=== PATIENT | male | born 1945 | race Caucasian/White ===

== ENCOUNTER 2021-03-06 06:26 | Day surgery (SDC) | payer MEDICARE ==
[2021-03-04 13:50] VITALS: BMI 28.8
[2021-03-06 06:54] VITALS: RESP 18; TEMP 97.9
[2021-03-06 06:57] LABS: Glucose,Whole Blood 111 mg/dL (75-99)
[2021-03-06] MEDS: LACTATED RINGERS 1,000 ML IV SCH ×2 (06:59→07:28)
[2021-03-06] MEDS ORDERED: PROPOFOL 10 MG/ML 20 ML VIAL IV ONE (07:29)
[2021-03-06] MEDS ORDERED: LIDOCAINE 1% INJ 10MG/ML (20 ML MDV) ONE (07:29)
[2021-03-06 08:19] VITALS: BP 120/75; PULSE 77
--- NOTE | 2021-03-06 08:22 | P.PCN ---
Date of Procedure: 03/06/21 Procedure(s) Performed: Brief history: Patient is a pleasant 76-year-old pleasant white female scheduled for an elective upper endoscopy as well as colonoscopy as a part of evaluation of long- standing history of GERD and prior history of colon polyps. Procedure performed: Esophagogastroduodenoscopy with biopsy Colonoscopy with snare polypectomy Preoperative diagnosis: GERD History of colon polyps Anesthesia: MAC Procedure: After informed consent was obtained from the patient was brought into the en doscopy unit and IV sedation was administered by anesthesia under continuous monitoring. Initially upper endoscopy was done. The Olympus GF 160 video endoscope was inserted inserted into the mouth and esophagus intubated without any difficulty and was gradually advanced into the stomach and duodenum and carefully examined. The bulb and second part of the duodenum appeared normal. The scope was then withdrawn into the stomach adequately insufflated with air and upon careful examination the antrum and body, cardia and fundus appeared normal. There was several small gastric polyps noted in the body the stomach which were biopsied. The scope was then withdrawn into the esophagus. The GE junction was located at 43 cm to the incisors. There was a short segment of Hinojosa's esophagus extending to 3 mm proximal to the GE junction which was biopsied. Rest of the esophagus appeared normal. Patient tolerated the procedure well. At this time the patient continued to remain sedation. Initial digital rectal examination was normal. Olympus CF 160 video colonoscope was then inserted into the rectum and gradually advanced to the right colon with a liquid anastomosis was visualized and appeared patent and normal. In the ascending colon there was a 3 mm polyp removed by snare polypectomy. In the transverse colon there was a 5 mm polyp removed by snare polypectomy and the descending colon there was a 1 cm polyp was snare polypectomy., The sigmoid colon and rectum appeared normal. Retroflexion was performed in the rectum and no lesions were noted. Patient tolerated the procedure well. Impression: 1. 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 Colonoscopy revealed: a) 3 mm ascending colon polyp status post polypectomy b) 3 mm transverse colon polyp status post polypectomy c) 1 cm descending colon polyp status post-polypectomy Recommendations: Findings of this examination were discussed with the patient as well as her family. He was advised to follow with the biopsy results. If the biopsy reveals adenoma he can have a repeat colonoscopy in 3-5 years. If the biopsy of the esophagus reveals Hinojosa's
== END 2021-03-06 08:42 | disposition home or self-care (01) ==
LOC: ORWHC2ENDO 06:26
PROVIDERS: ATTEND Internal Medicine Gastroenterology
DX: K22.70 Barrett's esophagus without dysplasia (principal); K31.7 Polyp of stomach and duodenum; D12.4 Benign neoplasm of descending colon; D12.3 Benign neoplasm of transverse colon; D12.2 Benign neoplasm of ascending colon; K21.9 Gastro-esophageal reflux disease without esophagitis; Z86.010 Personal history of colon polyps
CPT/HCPCS: 45385; 43239; 88305; J2001; J2704